=== PATIENT | female | born 1975 | race Two or more races ===

== ENCOUNTER 2020-12-13 08:00 | Inpatient (IN) | payer OTHER ==
[~2020-12-13] VITALS: Ht 170.2 cm; Wt 65.8 kg
[2020-12-23] MEDS ORDERED: TANDEM PLUS CA1 EACH PO (11:20)
[2020-12-23] MEDS ORDERED: ULTRACET PO (11:21)
[2020-12-23] MEDS ORDERED: COLACE100 MG PO (11:21)
== END 2020-12-23 11:38 | disposition home or self-care (01) | DRG 742 ==
LOC: O/R 12-20 05:28 → ICU-2 12-20 07:00 → SURH 12-20 08:00 → OB/GYN 12-20 17:31
PROVIDERS: ADMIT Obstetrics & Gynecology; ATTEND Obstetrics & Gynecology
PROC: 0USG0ZZ Reposition Vagina, Open Approach (ICD-10-PCS; 2020-12-20)
PROC: 0W3J0ZZ Control Bleeding in Pelvic Cavity, Open Approach (ICD-10-PCS; 2020-12-20)
PROC: 0DJD8ZZ Inspection of Lower Intestinal Tract, Via Natural or Artificial Opening Endoscopic (ICD-10-PCS; 2020-12-20)
PROC: 30233R1 Transfusion of Nonautologous Platelets into Peripheral Vein, Percutaneous Approach (ICD-10-PCS; 2020-12-20)
PROC: 0UT90ZZ Resection of Uterus, Open Approach (ICD-10-PCS; principal; 2020-12-20 07:00)
DX: D25.0 Submucous leiomyoma of uterus (principal); K91.62 Intraoperative hemorrhage and hematoma of a digestive system organ or structure complicating other procedure; N72 Inflammatory disease of cervix uteri; D25.2 Subserosal leiomyoma of uterus; D25.1 Intramural leiomyoma of uterus; N73.6 Female pelvic peritoneal adhesions (postinfective); N85.8 Other specified noninflammatory disorders of uterus

== ENCOUNTER 2021-08-05 14:27 | Outpatient (CLI) | payer OTHER ==
[~2021-08-05 14:27] MED LIST: COLACE100 MG PO; TANDEM PLUS CA1 EACH PO; ULTRACET PO
== END 2021-08-05 14:28 | disposition home or self-care (01) ==
LOC: LAB 14:27
PROVIDERS: ATTEND Surgery
DX: D64.9 Anemia, unspecified (principal)

== ENCOUNTER 2021-10-18 05:45 | Inpatient (IN) | payer OTHER | END 2021-10-19 13:18 | disposition home or self-care (01) | DRG 581 | LOC: CIR.AMB 05:45 → OB/GYN 18:58 → SEC-K 18:58 → OB/GYN 18:59 | PROVIDERS: Plastic Surgery; ADMIT Surgery; ATTEND Surgery | PROC: 0HUV0JZ Supplement Bilateral Breast with Synthetic Substitute, Open Approach (ICD-10-PCS; 2021-10-18) | PROC: 07T80ZZ Resection of Right Internal Mammary Lymphatic, Open Approach (ICD-10-PCS; principal; 2021-10-18 07:00) | PROC: 0HTV0ZZ Resection of Bilateral Breast, Open Approach (ICD-10-PCS; 2021-10-18 07:00) | DX: D05.01 Lobular carcinoma in situ of right breast (principal); Z20.822 Contact with and (suspected) exposure to COVID-19; Z90.13 Acquired absence of bilateral breasts and nipples ==